=== PATIENT | male | born 1945 | race Caucasian/White ===

== ENCOUNTER → 2017-09-28 | Outpatient (CLI) | payer MEDICARE, BC ==
[~2017-09-28] MED LIST: C-LEXIN500 MG PO; CEPHALEXIN500 M1 PO; LIPITOR20 MG PO; LORTAB 5/500 501 TAB; MOTRIN800 MG PO; PERCOCET 325 MG1 TA2 PO; PERCOCET 325 MG1 TA3 PO; PLAVIX 75MG TAB75 MG PO
== END ==
LOC: ZCOL.LAB 16:02
DX: Z01.812 Encounter for preprocedural laboratory examination (principal); Z86.14 Personal history of Methicillin resistant Staphylococcus aureus infection

== ENCOUNTER → 2017-11-21 | Outpatient (CLI) | payer MEDICARE, BC ==
[2017-11-21 17:27] LABS: HIV 1/2 Antibodies Non-Reactive; HIV-1p24 Antigen Non-Reactive
== END ==
LOC: COL.LAB 16:26
PROVIDERS: Orthopaedic Surgery
DX: Z01.812 Encounter for preprocedural laboratory examination (principal); M17.12 Unilateral primary osteoarthritis, left knee

== ENCOUNTER 2021-01-19 16:37 | Emergency (ER) | payer MEDICARE, BC ==
[~2021-01-19] VITALS: Ht 175.3 cm; Wt 70.5 kg
[2021-01-19 17:04] VITALS: BP 158/73; PULSE 81
[2021-01-19 17:41] LABS: BASO # 0.1 K/mm3 (0.0-0.2); BASO % 0.8 % (0.0-2.0); EOS # 0.2 K/mm3 (0.0-0.7); EOS % 2.3 % (0-4.0); GRAN # 4.8 K/mm3 (1.4-6.5); GRAN % 56.8 % (42.2-75.2); HEMOGLOBIN 12.2 g/dl (13.5-18.0); LYMPH # 2.6 K/mm3 (1.2-3.4); LYMPH % 30.6 % (20.0-51.0); MEAN CELL VOLUME 94 fl (80.0-100.0); MEAN CORPUSCULAR HEMOGLOBIN 31 pg (27.0-31.0); MEAN CORPUSCULAR HGB CONC 33 g/dl (33.0-37.0); MEAN PLATELET VOLUME 9.9 fl (7.4-10.4); MONO # 0.7 K/mm3 (0.1-0.6); MONO % 8.7 % (1.7-9.3); PLATELET COUNT 336 K/mm3 (130-400); RED BLOOD COUNT 3.92 M/mm3 (4.20-5.60); REDCELL DISTRIBUTION WIDTH-CV 13.4 % (11.5-14.5)
[2021-01-19 17:42] LABS: HEMATOCRIT 36.7 % (42.0-52.0)
[2021-01-19 17:56] LABS: INR 0.9 (0.8-3.0); PROTHROMBIN TIME 9.5 SECONDS (9.7-12.8)
[2021-01-19 17:57] LABS: ALBUMIN 3.9 gm/dL (3.4-4.8); BILIRUBIN,TOTAL 0.1 mg/dL (0.2-1.2); C-REACTIVE PROTEIN 0.47 mg/dL (0.00-0.50); CALCIUM 8.8 mg/dL (8.4-10.2); CREATININE, serum 1.37 mg/dL (0.72-1.25); POTASSIUM 3.8 mmol/L (3.5-4.5); TOTAL PROTEIN 7.6 gm/dL (6.2-8.1)
[2021-01-19] MEDS ORDERED: PLAVIX 75MG TAB75 MG PO (20:42)
[2021-01-20] MEDS ORDERED: CEPHALEXIN250 M1 PO (11:12)
[2021-01-20] MEDS ORDERED: NORCO 325 MG-51 TAB PO (11:13)
[2021-01-20] MEDS ORDERED: ASPIRIN E.C. 8181 MG PO (13:06)
[2021-01-20] MEDS ORDERED: LIPITOR 40MG TA40 MG PO (13:06)
== END 2021-01-19 21:04 | disposition home or self-care (01) ==
LOC: COL.ER 16:37
PROVIDERS: Family Medicine
DX: R27.0 Ataxia, unspecified (principal); Z87.891 Personal history of nicotine dependence
CPT/HCPCS: Q9967

== ENCOUNTER 2021-01-20 10:03 | Emergency (ER) | payer MEDICARE, BC ==
[~2021-01-20] VITALS: Ht 177.8 cm; Wt 70.5 kg
[2021-01-20] MEDS ORDERED: CEPHALEXIN250 M1 PO (11:12)
[2021-01-20] MEDS ORDERED: NORCO 325 MG-51 TAB PO (11:13)
[2021-01-20 11:34] LABS: BASO # 0.1 K/mm3 (0.0-0.2); BASO % 0.8 % (0.0-2.0); EOS # 0.2 K/mm3 (0.0-0.7); EOS % 2.3 % (0-4.0); GRAN # 5.4 K/mm3 (1.4-6.5); GRAN % 67.8 % (42.2-75.2); HEMATOCRIT 38.4 % (42.0-52.0); HEMOGLOBIN 12.4 g/dl (13.5-18.0); LYMPH # 1.7 K/mm3 (1.2-3.4); LYMPH % 21.2 % (20.0-51.0); MEAN CELL VOLUME 96 fl (80.0-100.0); MEAN CORPUSCULAR HEMOGLOBIN 31 pg (27.0-31.0); MEAN CORPUSCULAR HGB CONC 32 g/dl (33.0-37.0); MEAN PLATELET VOLUME 9.8 fl (7.4-10.4); MONO # 0.6 K/mm3 (0.1-0.6); MONO % 7.3 % (1.7-9.3); PLATELET COUNT 318 K/mm3 (130-400); RED BLOOD COUNT 3.99 M/mm3 (4.20-5.60); REDCELL DISTRIBUTION WIDTH-CV 13.4 % (11.5-14.5)
[2021-01-20 11:47] LABS: PROTHROMBIN TIME 11.1 SECONDS (9.7-12.8)
[2021-01-20 11:50] LABS: ALANINE AMINOTRANSFERASE 7 U/L (0-55); ALKALINE PHOSPHATASE 107 U/L (40-150); AST,SGOT 11 U/L (5-34); BILIRUBIN,TOTAL 0.3 mg/dL (0.2-1.2); BLOOD UREA NITROGEN 18 mg/dL (8-26); CALCIUM 9.1 mg/dL (8.4-10.2); CARBON DIOXIDE 23 mmol/L (23-31); CREATININE, serum 1.36 mg/dL (0.72-1.25); GLUCOSE 87 mg/dL (70-99); TOTAL PROTEIN 7.8 gm/dL (6.2-8.1)
[2021-01-20 11:57] LABS: ANION GAP 7 mmol/L (7-16); CHLORIDE 108 mmol/L (98-107); POTASSIUM 4.9 mmol/L (3.5-4.5); SODIUM 138 mmol/L (136-145)
[2021-01-20 11:59] LABS: TROPONIN-I < 0.010 ng/mL (0.00-0.033)
[2021-01-20] MEDS ORDERED: LIPITOR 40MG TA40 MG PO (13:06)
[2021-01-20] MEDS ORDERED: ASPIRIN E.C. 8181 MG PO (13:06)
[2021-01-20 14:00] VITALS: BP 132/73; PULSE 71
== END 2021-01-20 14:25 | disposition left against medical advice (07) ==
LOC: COL.ER 10:03
PROVIDERS: Physician Assistant
DX: I63.412 Cerebral infarction due to embolism of left middle cerebral artery (principal); I10 Essential (primary) hypertension; F17.210 Nicotine dependence, cigarettes, uncomplicated
CPT/HCPCS: A9585